=== PATIENT | male | born 1975 | race Caucasian/White ===

== ENCOUNTER 2019-12-03 07:00 | Emergency (ER) | payer BC ==
--- NOTE | 2019-12-03 08:04 | EDM.PDOC ---
ED HPI GENERAL MEDICAL PROBLEM - General Chief Complaint: Genitourinary Problem Stated Complaint: POSSIBLE KIDNEY STONES Time Seen by Provider: 12/03/19 07:15 Source of Information: Reports: Patient History Limitations: Reports: No Limitations - History of Present Illness INITIAL COMMENTS - FREE TEXT/NARRATIVE: 44-year-old male with history of KERRY on CPAP, HTN, anxiety presents with dysuria and hematuria for 3 days. He denies abdominal pain, back pain, nausea, vomiting, fever, chills, penile discharge. He states when he urinates it feels like he is passing razor blades. His secondary complaint is a mild diffuse 3/10 headache this morning, lasting for 30 minutes, associated with blurry vision. He said he felt shaky. His tertiary complaint is cough with sputum in the morning for the last 6 months, he uses a CPAP for his sleep apnea. He denies chest pain or shortness of breath. ROS: A 10-point review of systems, other than pertinent positives and negatives as stated per HPI, is otherwise negative PHYSICAL EXAM General: AOx4, GCS = 15, No distress, morbid obesity HEENT: dry mucous membrane Neck: supple, no meningismus, no Kernig or Brudzinski Cardiac: S1S2 RRR Respiratory: CTAB, no crackles or rales, no wheezing Abdomen: Soft, nontender, no rebound or guarding, nondistended, no pulsatile mass. Back: nontender Musculoskeletal: NVI distally, no deformity Neuro: No focal deficits MEDICAL DECISION MAKING: I reviewed the patients past medical records, lab and radiographic findings. I discussed the case with family members. My differential diagnosis included: Ureterolithiasis, throat irritation secondary to CPAP use, tension headache, migraine headache, cluster headache, is occupying lesion. Patient states he is and sexually active only with his for a long period time. They live in the same household and sleep together every night. He has no fever or penile discharge. Gonorrhea/chlamydia sent. MRI was performed, demonstrating similar findings from CAT scan. I discussed directly with the radiologist regarding differential for these findings on the MRI, Dr. Pearson does not think these are acute, and are stable for outpatient follow-up. penis Pain Score (Numeric/FACES): 2 - Related Data Allergies Allergy/AdvReac Type Severity Reaction Status Date / Time acetaminophen Allergy Vomiting Verified 12/03/19 07:23 [From Tylenol-Codeine #3] codeine Allergy Vomiting Verified 12/03/19 07:23 [From Tylenol-Codeine #3] Home Meds: Home Meds ALPRAZolam [Alprazolam] 2 tab PO DAILY 12/03/19 [History] Ciprofloxacin HCl [Cipro] 500 mg PO BID #14 tablet 12/03/19 [Rx] Pantoprazole [ProTONIX] 1 tab PO DAILY 12/03/19 [History] lisinopriL [Lisinopril] 1 tab PO DAILY 12/03/19 [History] Past Medical History HEENT History: Reports: None Cardiovascular History: Reports: Hypertension Respiratory History: Reports: Sleep Apnea Gastrointestinal History: Reports: GERD Genitourinary History: Reports: Renal Calculus Musculoskeletal History: Reports: None Neurological History: Reports: None Psychiatric History: Reports: Anxiety Endocrine/Metabolic History: Reports: None Hematologic History: Reports: None Immunologic History: Reports: None Oncologic (Cancer) History: Reports: None Dermatologic History: Reports: None - Infectious Disease History Infectious Disease History: Reports: Chicken Pox - Past Surgical History Head Surgeries/Procedures: Reports: None HEENT Surgical History: Reports: None Cardiovascular Surgical History: Reports: None Respiratory Surgical History: Reports: None GI Surgical History: Reports: None Male Surgical History: Reports: None Endocrine Surgical History: Reports: None Neurological Surgical History: Reports: None Musculoskeletal Surgical History: Reports: None Oncologic Surgical History: Reports: None Dermatological Surgical History: Reports: None Social & Family History - Family History Family Medical History: Noncontributory - Tobacco Use Smoking Status *Q: Never Smoker Second Hand Smoke Exposure: No - Caffeine Use Caffeine Use: Reports: Coffee, Energy Drinks, Soda, Tea - Alcohol Use Days Per Week of Alcohol Use: 7 Number of Drinks Per Day: 1 Total Drinks Per Week: 7 - Recreational Drug Use Recreational Drug Use: No ED ROS GENERAL - Review of Systems Review Of Systems: See Below (see dictation) ED EXAM, GENERAL - Physical Exam Exam: See Below (see dictation) EKG INTERPRETATION EKG Interpretation Comments: 101 Bpm, sinus tach, normal QRS interval, no STEMI. EKG and rhythm strip interpreted by me at 0729 Course - Vital Signs Last Recorded V/S: Last Vital Signs Temp 97.7 F 12/03/19 12:19 Pulse 100 12/03/19 12:19 Resp 16 12/03/19 12:19 BP 129/82 12/03/19 12:19 Pulse Ox 94 L 12/03/19 12:19 - Orders/Labs/Meds Orders: Active Orders 24 hr Category Date Time Status CHLAMYDIA AND GONORRHEA BY TMA Stat Lab 12/03/19 07:35 Received CULTURE URINE [RM] Stat Lab 12/03/19 07:35 Received Labs: Laboratory Tests 12/03/19 12/03/19 12/03/19 Range/Units 07:30 07:30 07:35 WBC 7.48 (4.0-11.0) K/uL RBC 4.17 L (4.50-5.90) M/uL Hgb 13.5 (13.0-17.0) g/dL Hct 39.5 (38.0-50.0) % MCV 94.7 (80.0-98.0) fL MCH 32.4 H (27.0-32.0) pg MCHC 34.2 (31.0-37.0) g/dL RDW Std Deviation 43.9 (28.0-62.0) fl RDW Coeff of Marcelo 13 (11.0-15.0) % Plt Count 146 L (150-400) K/uL MPV 11.50 (7.40-12.00) fL Neut % (Auto) 91.4 H (48.0-80.0) % Lymph % (Auto) 3.1 L (16.0-40.0) % Trinity % (Auto) 5.2 (0.0-15.0) % Eos % (Auto) 0.0 (0.0-7.0) % Baso % (Auto) 0.3 (0.0-1.5) % Neut # (Auto) 6.8 H (1.4-5.7) K/uL Lymph # (Auto) 0.2 L (0.6-2.4) K/uL Trinity # (Auto) 0.4 (0.0-0.8) K/uL Eos # (Auto) 0.0 (0.0-0.7) K/uL Baso # (Auto) 0.0 (0.0-0.1) K/uL Sodium 134 L (136-148) mmol/L Potassium 3.7 (3.5-5.1) mmol/L Chloride 96 L (98-107) mmol/L Carbon Dioxide 28.5 (21.0-32.0) mmol/L BUN 9 (7.0-18.0) mg/dL Creatinine 1.1 (0.8-1.3) mg/dL Est Cr Clr Drug Dosing 100.29 mL/min Estimated GFR (MDRD) > 60.0 ml/min Glucose 141 H (74-106) mg/dL Calcium 8.7 (8.5-10.1) mg/dL Total Bilirubin 0.9 (0.2-1.0) mg/dL AST 51 H (15-37) IU/L ALT 61 (14-63) IU/L Alkaline Phosphatase 80 (46-116) U/L Total Protein 7.4 (6.4-8.2) g/dL Albumin 3.0 L (3.4-5.0) g/dL Globulin 4.4 H (2.6-4.0) g/dL Albumin/Globulin Ratio 0.7 L (0.9-1.6) Urine Color DARK YELLOW Urine Appearance SLT CLOUDY Urine pH 7.0 (5.0-8.0) Ur Specific [place] 1.020 (1.001-1.035) Urine Protein 30 H (NEGATIVE) mg/dL Urine Glucose (UA) NEGATIVE (NEGATIVE) mg/dL Urine Ketones NEGATIVE (NEGATIVE) mg/dL Urine Occult Blood SMALL H (NEGATIVE) Urine Nitrite POSITIVE H (NEGATIVE) Urine Bilirubin SMALL H (NEGATIVE) Urine Ictotest POSITIVE Urine Urobilinogen 1.0 (<2.0) EU/dL Ur Leukocyte Esterase TRACE H (NEGATIVE) Urine RBC 2-5 (0-2/HPF) Urine WBC 15-20 (0-5/HPF) Ur Epithelial Cells RARE (NONE-FEW) Urine Bacteria 3+ H (NEGATIVE) Meds: Medications Discontinued Medications Generic Name Dose Route Start Last Admin Trade Name Nader PRN Reason Stop Dose Admin Ceftriaxone Sodium 1 gm 12/03/19 09:43 12/03/19 10:19 Rocephin IVPUSH 12/03/19 09:44 1 gm ONETIME ONE Administration Gadobenate Dimeglumine 20 ml 12/03/19 11:21 12/03/19 11:22 Multihance IVPUSH 12/03/19 11:22 20 ml ONETIME STA Administration Sodium Chloride 1,000 mls @ 999 mls/hr 12/03/19 08:08 12/03/19 08:26 Normal Saline IV 12/03/19 09:08 999 mls/hr .Bolus ONE Administration Ibuprofen 400 mg 12/03/19 12:05 12/03/19 12:18 Motrin PO 12/03/19 12:06 400 mg ONETIME ONE Administration Sterile Water 20 ml 12/03/19 09:44 12/03/19 10:19 Sterile Water For Injection INJECT 12/03/19 09:45 20 ml ONETIME ONE Administration - Re-Assessments/Exams Free Text/Narrative Re-Assessment/Exam: 12/03/19 1233 - After treatments and a prolonged observation period in the ER, the patient improved clinically and is stable for discharge. I performed a repeat examination and the patient has not demonstrated any new abnormal findings. Patient exhibits normal vital signs and has exhibited a normal gait. I advised the patient to return to the ER for reevaluation if symptoms worsened, and to follow up with their PCP within 2-3 days. Departure - Departure Time of Disposition: 12:30 Disposition: Home, Self-Care 01 Condition: Good Clinical Impression: Cystitis, Kidney stone on left side, Headache - Discharge Information *PRESCRIPTION DRUG MONITORING PROGRAM REVIEWED*: Not Applicable *COPY OF PRESCRIPTION DRUG MONITORING REPORT IN PATIENT LYNDSAY: Not Applicable Prescriptions: Ciprofloxacin HCl [Cipro] 500 mg PO BID #14 tablet Instructions: Kidney Stones, [id number], Urinary Tract Infection, Adult, Dietary Guidelines to Help Prevent Kidney Stones, General Headache Without Cause Referrals: PCP,Not In Area [Primary Care Provider] - Forms: ED Department Discharge Additional Instructions: The following information is given to patients seen in the emergency department who are being discharged to home. This information is to outline your options for follow-up care. We provide all patients seen in our emergency department with a follow-up referral. The need for follow-up, as well as the timing and circumstances, are variable depending upon the specifics of your emergency department visit. If you don't have a primary care physician on staff, we will provide you with a referral. We always advise you to contact your personal physician following an emergency department visit to inform them of the circumstance of the visit and for follow-up with them and/or the need for any referrals to a consulting specialist. The emergency department will also refer you to a specialist when appropriate. This referral assures that you have the opportunity for follow-up care with a specialist. All of these measure are taken in an effort to provide you with optimal care, which includes your follow-up. Under all circumstances we always encourage you to contact your private physician who remains a resource for coordinating your care. When calling for follow-up care, please make the office aware that this follow-up is from your recent emergency room visit. If for any reason you are refused follow-up, please contact the [facility] Emergency Department at and asked to speak to the emergency department charge nurse. If you do not have a primary care doctor, please follow up with the clinics below within 3-5 days. [facility] - Primary [facility] [address] [place] [id number] [facility] [address] [place] [address] Neurology [facility] - Neurology Professional Building [address] [place] [address], [address] [place] [address] Care Plan Goals: Please follow up with your PCP to set up a meeting for talking about your CPAP settings and checking to see if they are still correct for your needs. Sepsis Event Note (ED) - Evaluation Sepsis Screening Result: No Definite Risk - Focused Exam Vital Signs: Vital Signs Temp Pulse Resp BP Pulse Ox 12/03/19 12:19 97.7 F 100 16 129/82 94 L 12/03/19 10:54 93 16 147/73 H 93 L 12/03/19 10:25 92 15 134/71 94 L 12/03/19 07:28 98.0 F 107 H 19 154/85 H 98 - My Orders Last 24 Hours: My Active Orders 12/03/19 07:35 CHLAMYDIA AND GONORRHEA BY TMA Stat CULTURE URINE [RM] Stat - Assessment/Plan Last 24 Hours: My Active Orders 12/03/19 07:35 CHLAMYDIA AND GONORRHEA BY TMA Stat CULTURE URINE [RM] Stat
[2019-12-03 08:05] LABS: BLOOD UREA NITROGEN,BUN 9 mg/dL (7.0-18.0); CARBON DIOXIDE,CO2 28.5 mmol/L (21.0-32.0); CHLORIDE,CL 96 mmol/L (98-107); GLUCOSE RANDOM 141 mg/dL (74-106); POTASSIUM,K 3.7 mmol/L (3.5-5.1); SODIUM,NA 134 mmol/L (136-148)
[2019-12-03] MEDS ORDERED: Sodium Chloride 0.9% 1,000 ML IV ONE (08:08)
--- NOTE | 2019-12-03 08:34 | CT ---
Head CT Technique: Multiple axial sections through the brain were obtained. Intravenous contrast was not utilized. Comparison: No prior intracranial imaging is available. Findings: Multiple small low density areas are noted within the basal ganglia. Ventricles along with basal cisterns and sulci over the convexities are within normal limits for the patient's age. No other abnormal parenchymal densities are seen. No evidence of intracranial hemorrhage. No midline shift or mass-effect is appreciated. Bone window settings were reviewed. No acute calvarial finding is seen. Visualized paranasal sinuses and mastoid sinuses show nothing acute. Impression: 1. Multiple small low density findings within the basal ganglia. Differential includes prominent perivascular spaces versus old lacunar infarcts. 2. Nothing acute is otherwise seen on noncontrast head CT exam. Diagnostic code #2 This report was dictated in MDT
--- NOTE | 2019-12-03 08:34 | CT ---
CT abdomen and pelvis Technique: Multiple axial sections were obtained from above the dome of the diaphragm inferiorly through the pubic symphysis. Intravenous contrast and oral contrast not utilized. Study has been performed as a ureteral stone protocol. Findings: Ureters show no dilatation. No abnormal calcifications are seen along the course of the ureters. Left kidney shows a nonobstructing stone measuring 6 mm. No other abnormal calcifications are seen within the kidneys. Appendicolith noted within the appendix measuring 9 mm. Appendix shows no dilatation. Slight inflammatory change is seen around the bladder. Difficult to exclude change from cystitis. Visualized lung bases show nothing acute. Liver shows diffuse fatty infiltration. Spleen shows no focal abnormality. Adrenal glands show no nodule. Pancreas appears within normal limits. Gallbladder contains no calcified gallstones. Aorta shows no aneurysm. No retroperitoneal adenopathy or mesenteric abnormalities are seen. No pelvic mass or adenopathy is seen. No free fluid is seen. Small fat-containing bilateral inguinal hernias are noted. Bone window settings were reviewed which shows scattered degenerative change within the spine with no acute osseous finding. Impression: 1. Inflammatory change around the bladder raising the possibility of cystitis. Please correlate. 2. Left renal stone measuring 6 mm. No ureteral dilatation or ureteral stone is seen. 3. Other nonacute findings as noted above. Diagnostic code #3 This report was dictated in MDT
--- NOTE | 2019-12-03 09:06 | CR ---
Chest: Frontal view of the chest was obtained. Comparison: No previous chest x-ray. Heart size and mediastinum are within normal limits for technique. Central lung markings are increased. This is most likely accentuated from patient body habitus. No definite acute appearing parenchymal change is seen. Impression: 1. Findings as noted above. Nothing acute is definitely appreciated. Diagnostic code #2 This report was dictated in MDT
[2019-12-03] MEDS ORDERED: cefTRIAXone 1 GM Vial IVPUSH ONE (09:43)
[2019-12-03] MEDS ORDERED: Water For Injection, Sterile 20 ML SDV INJECT ONE (09:44)
[2019-12-03] MEDS ORDERED: Gadobenate Dimeglumine 529 MG/ML 20 ML SDV IVPUSH STA (11:21)
[2019-12-03] MEDS ORDERED: Ibuprofen 400 MG Tab PO ONE (12:05)
--- NOTE | 2019-12-03 12:15 | MR ---
MRI brain (without and with intravenous contrast) Technique: T1 sagittal and coronal; T1, T2, FLAIR and diffusion axial; T1 fat-suppressed postcontrast axial, coronal and sagittal images were obtained. Comparison: Prior head CT study performed earlier on the same day (8:04 AM). Findings: Normal signal void is seen within the major cerebral arteries within the skull base. Ventricles along with basal cisterns and sulci over the convexities appear within normal limits. Multiple small areas of increased signal are scattered within the subcortical white matter. Low signal findings are noted within both basal ganglia which are felt compatible with prominent perivascular spaces. There are no acute diffusion abnormalities being seen. No abnormal enhancement is identified. Impression: 1. Small areas of increased signal scattered within the subcortical white matter. These are most likely old and are nonspecific but can be seen with chronic migraine headaches. 2. Prominent perivascular spaces within both basal ganglia correlating to the findings on CT exam. 3. No additional abnormality is seen. No acute diffusion findings are seen. No abnormal enhancement is seen. Diagnostic code #2 This report was dictated in MDT
== END 2019-12-03 12:48 | disposition home or self-care (01) ==
LOC: MW.ED 07:00
DX: N20.0 Calculus of kidney (principal); N30.90 Cystitis, unspecified without hematuria; R51 Headache; I10 Essential (primary) hypertension; F41.9 Anxiety disorder, unspecified; Z88.6 Allergy status to analgesic agent; Z88.5 Allergy status to narcotic agent; Z88.1 Allergy status to other antibiotic agents; K21.9 Gastro-esophageal reflux disease without esophagitis; Z79.899 Other long term (current) drug therapy
CPT/HCPCS: 36415; 70450; 70450-26; 70553; 70553-26; 71045; 71045-26; 74176; 74176-26; 80053; 81001; 85025; 87086; 87088; 87186; 87491; 87591; 96374; 99284-25; A9270-GY; A9577; J0696; J7030